=== PATIENT | male | born 1990 | race Caucasian/White ===

== ENCOUNTER 2021-04-19 12:13 | Emergency (ER) | payer OTHER, SELFPAY ==
--- NOTE | ~2021-04-19 | XR_ITS ---
EXAMINATION: XR chest 1V portable EXAM DATE: 04/19/2021 15:03 INDICATION: Cough, left chest pain with cough. TECHNIQUE: Portable AP frontal chest x-ray was obtained. There is no prior study for comparison. FINDINGS: Suspect some small ill-defined bilateral opacities, patient may have developing acute infec tious process such as COVID pneumonia. Please clinically correlate. No confluent consolidation, pneum othorax or pleural effusion suspected. Cardiomediastinal silhouette is normal. There are no osseous abnormalities identified. IMPRESSION: Suspect developing acute infectious process. Reviewed, dictated and finalized at location A. DEALER
[2021-04-19 12:27] VITALS: BP 155/107; PULSE 97; RESP 20; TEMP 36.2; O2SAT 98
--- NOTE | 2021-04-19 14:03 | ECG_ITS ---
Measurements Intervals [place] Rate: 92 P: 43 OK: 150 QRS: 19 QRSD: 97 T: 30 QT: 361 QTc: 448 Interpretive Statements SINUS RHYTHM INCOMPLETE RIGHT BUNDLE BRANCH BLOCK BASELINE ARTIFACT- I, II, III, AVR, AVL, AVF BORDERLINE ECG Electronically Signed On 04-19-2021 16:36:24 [employer]ION [employer]URE COMMENT[employer] by Jelani Sandhu D.O.
--- NOTE | 2021-04-19 14:08 | ED.URI ---
HPI - URI/Sore Throat General Chief Complaint: Upper Respiratory Infection Stated Complaint: cough Time Seen by Provider: 04/19/21 13:50 Source: patient Mode of arrival: ambulatory Limitations: no limitations History of Present Illness HPI Narrative: This is a 30 year old male that presents to the ER for cold symptoms present x 6 days. Reports cough, sore throat, congestion, and hoarseness. Reports left-sided chest pain with coughing. Denies fever or shortness of breath. Related Data Allergies Allergy/AdvReac Type Severity Reaction Status Date / Time No Known Allergies Allergy Verified 04/19/21 15:31 Review of Systems Review of Systems: CONSTITUTIONAL: Denies fever ENT: Report congestion, sore throat CARDIOVASCULAR: Reports chest pain RESPIRATORY: Reports cough. Denies dyspnea. All systems reviewed & are unremarkable except as noted in HPI and below PMFSH Past Medical History Medical History (Updated 04/19/21 @ 16:11 by Carolina Dorantes PA-C) No active medical problems Social History Social History (Updated 04/19/21 @ 14:10 by Carolina Dorantes PA-C) Substance use: never Exam Narrative: GENERAL: Well-appearing, well-nourished, and in no acute distress. HEAD: Normocephalic, atraumatic. EYES: EOMI. ENT: Nares clear, no rhinorrhea or epistaxis. Mucous membranes moist. Oropharynx with erythema; no tonsillar hypertrophy, exudate or other lesions. NECK: Supple. No adenopathy or masses. CHEST: Clear to auscultation. No respiratory distress. No wheezes rales or rhonchi HEART: Regular rate and rhythm. No murmur heard. Normal peripheral pulses. EXTREMITIES: Normal range of motion. No edema. SKIN: Warm, dry, no rash. NEURO: No focal deficits. Alert and oriented x3. PSYCH: Normal mood and affect Course Vital Signs Vital signs: Vital Signs Temperature 97.2 F L 04/19/21 12:27 Pulse Rate 97 04/19/21 12:27 Respiratory Rate 20 04/19/21 12:27 Blood Pressure 155/107 H 04/19/21 12:27 Pulse Oximetry 98 04/19/21 12: Temperature 97.2 F L 04/19/21 12:27 Pulse Rate 97 04/19/21 12:27 Respiratory Rate 20 04/19/21 12:27 Blood Pressure 155/107 H 04/19/21 12:27 Pulse Oximetry 98 04/19/21 12:27 MDM - URI/Sore Throat MDM Narrative Medical decision making narrative: Patient presents to the ER for cold symptoms present x 6 days. Patient is afebrile and nontoxic appearing. Oxygen saturation has remained normal on room air. CBC with mild leukocytosis to 12.4. Metabolic panel without concerning findings. EKG without acute ST changes and baseline troponin is negative. Influenza screen and strep screens are negative. SARS-CoV-2 was sent. Chest x-ray shows likely developing pneumonia. Patient was updated on case findings. Will be started on oral antibiotics pending Covid swab. He was instructed on continued care of pneumonia. Patient is stable and felt appropriate for further outpatient evaluation. He is to follow-up with his primary care doctor. He was given warnings to return to the ER Lab Data Attestation: I reviewed the patient's lab results. Result diagrams: 04/19/21 15:07 04/19/21 15:07 Labs: Lab Results 04/19/21 04/19/21 04/19/21 Range/Units 14:38 15:07 15:07 WBC 12.4 H (4.5-10.0) K/mm3 RBC 5.34 (4.6-6.20) M/mm3 Hgb 17.0 (14.0-18.0) g/dL Hct 49.0 (42.0-52.0) % MCV 91.8 (80-100) fl MCH 31.8 (26-34) pg MCHC 34.7 (32-36) g/dl RDW 12.5 (11.5-14.5) % Plt Count 279 (150-375) k/mm3 MPV 9.4 (7.4-10.4) fl Immature Gran % (Auto) 0.3 (0-0.5) % Neut % (Auto) 71.5 (45.5-73.1) % Lymph % (Auto) 19.5 (18.3-44.2) % [place] % (Auto) 8.1 (2.6-8.5) % Eos % (Auto) 0.3 (0-4.4) % Baso % (Auto) 0.3 (0.2-1.2) % Lymph # (Auto) 2.42 (0.9-3.2) K/mm3 [place] # (Auto) 1.0 H (0.1-0.6) K/mm3 Eos # (Auto) 0.0 (0-0.3) K/mm3 Baso # (Auto) 0.0 (0.0-0.1) K/mm3 Abs Immat Gran (auto) 0.04
--- NOTE | 2021-04-19 14:38 | PC.NURSE ---
Refuses blood tests at present.
[2021-04-19 15:14] LABS: Basophils Percent Auto 0.3 % (0.2-1.2); Eosinophils Percent Auto 0.3 % (0-4.4); Immature Granulocyte Absolute 0.04 K/mm3 (0.00-0.031); Immature Granulocyte Percent A 0.3 % (0-0.5); Lymphocytes Absolute Auto 2.42 K/mm3 (0.9-3.2); Lymphocytes Percent Auto 19.5 % (18.3-44.2); Mean Corpuscular HGB Conc 34.7 g/dl (32-36); Mean Corpuscular Hemoglobin 31.8 pg (26-34); Mean Corpuscular Volume 91.8 fl (80-100); Mean Platelet Volume 9.4 fl (7.4-10.4); Monocytes Percent Auto 8.1 % (2.6-8.5); Neutrophils Absolute Auto 8.9 K/mm3 (1.3-6.7); Neutrophils Percent Auto 71.5 % (45.5-73.1); Platelet Count Result 279 k/mm3 (150-375); Red Blood Count 5.34 M/mm3 (4.6-6.20); Red Cell Distribution Width 12.5 % (11.5-14.5); White Blood Count 12.4 K/mm3 (4.5-10.0)
[2021-04-19 15:22] LABS: INR 0.9; Prothrombin Time 12.3 Seconds (11.1-14.7)
[2021-04-19 15:23] LABS: Anion Gap 14 mmol/L (8-16); Blood Urea Nitrogen 8 mg/dL (9-20); Calcium 9.5 mg/dL (8.4-10.2); Carbon Dioxide 27 mmol/L (22-30); Chloride 94 mmol/L (98-107); Estimated CRCL calculation 156 ml/min; Estimated Glomerular Filt Rate > 60; Glucose 100 mg/dL (65-110); Partial Thromboplastin Time 25.7 SECONDS (22.3-36.8); Potassium 3.5 mmol/L (3.4-5.0); Sodium 135 mmol/L (137-145)
[2021-04-19] MEDS: KETOROLAC (*BKC) 60 MG/2 ML VIAL IM (15:31)
[2021-04-19 15:35] LABS: Troponin I < 0.012 ng/mL (0.000-0.034)
[2021-04-20 20:10] LABS: SARS-CoV-2 RNA PCR Negative
== END 2021-04-19 16:15 | disposition home or self-care (01) ==
PROVIDERS: Physician Assistant; Emergency Provider Emergency Medicine
DX: J18.9 Pneumonia, unspecified organism (principal); Z20.822 Contact with and (suspected) exposure to COVID-19; I45.10 Unspecified right bundle-branch block
CPT/HCPCS: 36415; 71045; 80048; 84484; 85025; 85610; 85730; 87081; 87804; 87880; 93005; 96372; 99283; C9803; J1885; U0003; U0005